=== PATIENT | female | born 1980 | race Hispanic/Latino ===

== ENCOUNTER → 2020-03-26 | Outpatient (CLI) | payer OTHER ==
--- NOTE | 2020-03-26 08:57 | Diagnostic Imaging Report ---
EXAMINATION: CHEST 2 VIEWS INDICATION: Shortness of breath, cough COMPARISON: None FINDINGS: LINES/TUBES:None LUNGS:The lungs are well-inflated. Mildly increased bibasilar interstitial opacities. PLEURA:No pleural effusion or pneumothorax. MEDIASTINUM:The cardiomediastinal silhouette appears normal in size and shape. BONES/SOFT TISSUES:No acute osseous injury. ABDOMEN:No free air under the diaphragm. Status post cholecystectomy. Ventral abdominal mesh repair. IMPRESSION: Mildly increased bibasilar interstitial opacities without focal consolidation or pulmonary edema. Findings may represent sequela of known prior viral pneumonia Signed by: Columba Hurd MD on 03/26/2020 8:54 AM
== END ==
LOC: RAD 07:50
PROVIDERS: ATTEND Family Medicine
DX: R06.02 Shortness of breath (principal)
CPT/HCPCS: 71046